=== PATIENT | female | born 1995 | race Caucasian/White ===

== ENCOUNTER 2019-07-05 19:56 | Emergency (ER) | payer OTHER ==
[~2019-07-05] VITALS: Ht 167.6 cm; Wt 136.2 kg
[2019-07-05 20:17] VITALS: BP 140/58
--- NOTE | 2019-07-05 20:24 | NUR ---
PT AMB TO CHAIR C
--- NOTE | 2019-07-05 20:25 | NUR ---
PT ASSESSMENT COMPLETE. PT SEATED IN IN CHAIR C.
[2019-07-05] MEDS ORDERED: KETOROLAC 60 MG/2 ML VIAL IM ONE (20:45)
[2019-07-05 21:05] VITALS: BP 134/60
--- NOTE | 2019-07-05 21:06 | NUR ---
Patient discharged with v/s stable. Written and verbal after care instructions given and explained. Patient alert, oriented and verbalized understanding of instructions. Ambulatory with steady gait. All questions addressed prior to discharge. ID band removed. Patient advised to follow up with PMD. Rx of IBUPROFEN, AMOXICILLIN given. Patient educated on indication of medication including possible reaction and side effects. patient sent to lobby to wait for med re-evaluation. Opportunity to ask questions provided and answered.
--- NOTE | 2019-07-05 21:15 | NUR ---
patient left before med could be re-evaluated.
== END 2019-07-05 21:06 | disposition home or self-care (01) ==
LOC: MED 19:56
DX: K02.9 Dental caries, unspecified (principal); F31.9 Bipolar disorder, unspecified; G43.909 Migraine, unspecified, not intractable, without status migrainosus
CPT/HCPCS: 96372; 99283; J1885